=== PATIENT | female | born 1955 | race African-American/Black ===

== ENCOUNTER → 2019-02-26 | Outpatient (CLI) | payer OTHER ==
[~2019-02-26] VITALS: Ht 160 cm; Wt 110.7 kg
[~2019-02-26] MED LIST: CARVEDILOL12.5 MG PO; IBUPROFEN 200200 M1 PO; LOSARTAN-HCTZ1 EAC1 PO; MEDROLDOSEPACK PO; PRAVACHOL40 MG PO
--- NOTE | ~2019-02-26 | HPC ---
[facility] [address] [place] [address] PAIN MANAGEMENT CONSULTATION Name: RUBEN ZAFAR Room #: REG CHANDA StewartSantos#: [id number] Admission: 02/26/19 ������������������ Attend Phys: Bruno Sheikh MD Discharge: ������������������ Date of : 51 Report #: [id number] THIS REPORT FOR: //name// CC: Dr. Colt Hyatt [facility] physician/PCP Bruno Sheikh DATE OF SERVICE: 02/26/2019 CHIEF COMPLAINT: Pain in the low back that goes down into the lower leg. Pain is worse with walking and with lying down. I have tried medications, but it still is painful. She describes the discomfort as continuous, aching, intermittent, sharp, and throbbing. It has been going on for some time. She does noted some discomfort in 1998. Rates it as a 9/10 at this point. Denies any injury to cause this. Denies any significant change in bowel or bladder function. The patient states that she had an MRI, which showed some pressure on the nerve. The patient has had physical therapy, but the improvement was not long lasting. ALLERGIES: PENICILLIN, SHELLFISH, X-RAY DYE. PAST MEDICAL HISTORY: Hyperlipidemia, hypertension, morbid obesity, diverticulosis, and sciatica. PAST SURGICAL HISTORY: Carpal tunnel release 2013, appendectomy 2001, hysterectomy in 1979. Right heel surgery. SOCIAL HISTORY: She works as a customer success associate. She is working at this point. REVIEW OF SYSTEMS: Generally good health, cataracts, wears glasses, and palpitations. LABORATORY DATA: MRI of the lumbar spine dated 01/08/2019: 1. L1-L2 broad-based disk bulge and central disk protrusion with facet and ligamentum flavum hypertrophy results in mild central canal stenosis and thecal sac flattening. 2. L2-L3, circumferential disk bulge and asymmetrical left lateral protrusion in conjunction with facet arthrosis and ligamentum flavum hypertrophy cause mild central canal stenosis, the left greater than right neural foraminal narrowing. 3. L3-L4 disk bulge, facet and ligamentum flavum hypertrophy and left lateral protrusion causes [id number]-urhjtjdz central stenosis and bilateral foraminal stenosis, left greater than right. 4. L4-L5 disk bulge and central disk protrusion with facet and ligamentum flavum, greater on the right side with mild central canal stenosis as well as a right greater than left foraminal and lateral recess narrowing. [address] [address] PAIN MANAGEMENT CONSULTATION Name: RUBEN ZAFAR Room #: REG CLCasey Mcneil#: [id number] Admission: 02/26/19 ������������������ Attend Phys: Bruno Sheikh MD Discharge: ������������������ Date of : 51 Report #: [id number] 5. L5-S1. No disk protrusion. Central spinal or foraminal stenosis. 6. Impression, multilevel degenerative changes with disk bulge, facet arthropathy, and ligamentum flavum hypertrophy -- results in spinal stenosis and foraminal encroachment. PAIN CLINIC ASSESSMENT/PQRS: 1. The patient is not being treated for osteoarthritis or rheumatoid arthritis. 2. Height 62 inches, weight 245 pounds, BMI 44.9. 3. Blood pressure 130/84. 4. Pain intensity 9/10. 5. Fall history: The patient has not fallen in the last 3 months. 6. Blood thinner. The patient is not on a blood thinning medication. 7. The patient is at low risk for opioid use. 8. Alcohol: The patient denies frequent use of alcoholic beverages. 9. Drugs. The patient denies use of illegal drugs. PHYSICAL EXAMINATION: GENERAL: The patient is a well-developed, well-nourished, somewhat obese black female. Appears her stated age. She is alert and oriented x 3. Her affect is appropriate. Speech is fluent. HEENT: Normocephalic, atraumatic. Extraocular eye muscles intact. Sclerae nonicteric. Mucous membranes moist. NECK: Without adenopathy or JVD. EXTREMITIES: Upper extremity muscle strength is judged to be 5/5 for the major muscle groups in the upper extremity. CARDIAC: The patient's heart rate is regular. ABDOMEN: Protuberant. Bowel sounds present. EXTREMITIES: The patient without significant scoliosis, kyphosis, or lordosis. The patient does complain of pain and discomfort, which is radiating down into the low back area with positive straight leg raise on the left and sometimes right midline area at L5-S1. There is sensory changes. There is straight leg raise is positive on the left and right side. IMPRESSION: 1. Lumbar radiculopathy. 2. Hyperlipidemia. 3. Hypertension. 4. Morbid obesity. 5. Diverticulosis. 6. Sciatica. RECOMMENDATIONS: We discussed treatment options with the patient. At this juncture, she has continued to have pain and discomfort, which has been quite problematic. She has had episodes in the past. They have resolved. She is finding that the pain is more problematic. Rates it as 9/10. It is severely and impacting her activities of daily living. She has had an MRI. She has [address] [address] PAIN MANAGEMENT CONSULTATION Name: RUBEN ZAFAR Room #: REG CHANDA Mcneil#: [id number] Admission: 02/26/19 ������������������ Attend Phys: Bruno Sheikh MD Discharge: ������������������ Date of : 51 Report #: [id number] tried nonsteroidal anti-inflammatory medications, had physical therapy, and has continued to try stretching exercises. She will be provided a Medrol Dosepak to take at this juncture. After her insurance company provides her precertification she will return at which time we will consider an epidural steroid injection in the L5-S1 area to help quiet the pain and discomfort which she is experiencing. We would like to thank you for letting us participate in her care. We hope she continues to improve. ��������������������������������������������� ���������������������������������������� By: ��������������������������������������������� 1031 1241 Bruno Sheikh MD /GARRY
[2019-02-26 12:54] VITALS: BP 192/103
--- NOTE | 2019-02-26 13:23 | NUR ---
Pain Clinic Assessment: 1. History of Osteoarthritis: Not Applicable History of Rheumatoid Arthritis: Not Applicable 2. Height: 5 ft. 3 in. 160.0 cm. Weight: 244.0 lb. oz. 110.678 kg. Patient's BMI: 43.2 3. Vital Signs: BP: 192/103 Pulse: 70 Resp: 18 Temp: 02 Sat: 100 ECG Mon: 4. Pain Intensity: 9 5. Fall Risk: Dizziness: N Needs help standing or walking: N Fallen in the last 3 months: N Fall risk comments: 6. Patient on Blood Thinner: None 7. History of Hypertension: Y 8. Opioid Therapy greater than 6 weeks: N Opiate Contract Signed: 9. Risk Assessment Tool Provided: 10. Functional Assessment Tool: 11. Recreational Drug Use: Never Drug Type: Tobacco Use: Never Smoker Tobacco Type: Amount or Packs/day: How Many Years: Alcohol Use: No Frequency: Quant:
== END ==
LOC: PAIN 09:33
DX: M54.16 Radiculopathy, lumbar region (principal); M54.30 Sciatica, unspecified side; E78.5 Hyperlipidemia, unspecified; I10 Essential (primary) hypertension; E66.01 Morbid (severe) obesity due to excess calories; K57.30 Diverticulosis of large intestine without perforation or abscess without bleeding; Z68.41 Body mass index [BMI] 40.0-44.9, adult

== ENCOUNTER → 2019-03-04 | Outpatient (CLI) | payer OTHER ==
[~2019-03-04] VITALS: Ht 160 cm; Wt 111.4 kg
[2019-03-04 08:09] VITALS: BP 195/100
--- NOTE | 2019-03-04 08:29 | NUR ---
Pain Clinic Assessment: 1. History of Osteoarthritis: Not Applicable History of Rheumatoid Arthritis: Not Applicable 2. Height: 5 ft. 3 in. 160.0 cm. Weight: 245.6 lb. oz. 111.404 kg. Patient's BMI: 43.5 3. Vital Signs: BP: 195/100 Pulse: 64 Resp: 18 Temp: 02 Sat: 100 ECG Mon: 4. Pain Intensity: 7 5. Fall Risk: Dizziness: N Needs help standing or walking: N Fallen in the last 3 months: N Fall risk comments: 6. Patient on Blood Thinner: None 7. History of Hypertension: Y 8. Opioid Therapy greater than 6 weeks: N Opiate Contract Signed: 9. Risk Assessment Tool Provided: low-0 10. Functional Assessment Tool: 49/70 11. Recreational Drug Use: Never Drug Type: Tobacco Use: Never Smoker Tobacco Type: Amount or Packs/day: How Many Years: Alcohol Use: No Frequency: Quant:
--- NOTE | 2019-03-12 12:16 | HPC ---
[facility] [place] [address] [place] [address] PAIN MANAGEMENT CONSULTATION Name: TIM CERDARUBEN Room #: REG CHANDA Ewa#: [id number] Admission: 03/04/19 ������������������ Attend Phys: Erick Jiang DO Discharge: ������������������ Date of : 51 Report #: [id number] THIS REPORT FOR: //name// CC: [facility] physician/PCP Erick Ortez MD DATE OF SERVICE: 03/04/2019 REFERRING PHYSICIAN: Danelle Ortez M.D. CHIEF COMPLAINT: Low back pain and bilateral lower extremity pain with paresthesias. HISTORY OF PRESENT ILLNESS: As you know, the patient is a 63-year-old female referred to our service by her primary care physician for evaluation for lumbar radiculopathy. The patient saw my partner, Dr. Brodie Sheikh on a visit of 02/26/2019, diagnosed with lumbar radiculopathy secondary to displacement of lumbar intervertebral disk and facet arthropathy of the lumbar spine. The patient was established today's appointment to undergo a lumbar epidural injection under fluoroscopic guidance as she needed a preauthorization before she could undergo the procedure. She returns today in followup visit reporting a pain level of 7/10. She has had no changes in medical history since the visit of 02/26/2019. ALLERGIES: IV CONTRAST AGENT and PENICILLIN. CURRENT MEDICATIONS: Losartan/hydrochlorothiazide, pravastatin, carvedilol and ibuprofen. SOCIAL HISTORY: The patient continues to report. She is a nonsmoker. Denies IV or illicit drug use. Denies any chronic alcohol use. She is a customer servicer, working, not receiving workmen's compensation, unaccompanied today. IMAGING DATA: No new imaging available. PHYSICAL EXAMINATION: VITAL SIGNS: Blood pressure 195/100, pulse 64 and respiratory rate 18 and unlabored. The patient on 100% on room air. Height 5 feet 3 inches tall, weight 245.6 pounds and BMI calculated 36.5. GENERAL: Well-developed, well-nourished, well-hydrated, class 3 morbidly obese 63-year-old female appearing stated age, pain is rated at 7/10. HEENT: Normocephalic and atraumatic. Pupils equal, round and reactive to light. EXTREMITIES: Show no clubbing, no cyanosis and no edema. [facility] [address] [place] [address] PAIN MANAGEMENT CONSULTATION Name: TIM RUBEN CERDA Room #: REG [facility] Pat.#: [id number] Admission: 03/04/19 ������������������ Attend Phys: Erick Jiang DO Discharge: ������������������ Date of : 51 Report #: [id number] MUSCULOSKELETAL: Lower extremity strength appears symmetrical 5/5. Muscle bulk and tone is symmetrical when comparing left lower extremity over right. Seated straight leg raising negative. Supine straight leg raising mildly positive. Gait is mildly antalgic, appearing to favor right lower extremity over left. The patient has difficulty in pain elicited with standing from a seated position. ASSESSMENT: 1. Symptomatic lumbar radiculopathy. 2. Displacement of the lumbar intervertebral disk with radiculopathy. 3. Lumbosacral spondylosis with radiculopathy. 4. Facet arthropathy of the lumbar spine. 5. Chronic intractable pain. PLAN: 1. The patient has returned today in followup visit to undergo the first in a series of lumbar epidural injections under fluoroscopic guidance. The patient has received preauthorization to undergo the epidural injection per her third green party payer. She was made today's appointment as soon as the patient could be seen to undergo the procedure. The patient and I discussed at length the risks and benefits of an epidural injection and the following was discussed with the patient today. We discussed risks that include but are not necessarily limited to bleeding, bruising, infection, worsening pain, no relief of pain, also risk of temporary or permanent muscle weakness, temporary or permanent nerve damage, possible paralysis, post-dural puncture headache and . The patient states understood and wished to proceed. 2. No medication changes made at today's visit. The patient will continue current medical therapy as previously prescribed. 3. We will see the patient back in followup visit in 30 days. At that time, review efficacy of today's epidural injection to determine if Dr. Sheikh wishes to move forward with the next in the series of lumbar epidural injections based on response to today's procedure. PROCEDURE NOTE DESCRIPTION OF PROCEDURE: L5-S1 interlaminar epidural steroid injection under fluoroscopic guidance. This is the first procedure of the first series that the patient is undergoing. After obtaining written consent, the patient was taken back to the fluoroscopy suite, placed in a prone position with pillow under the abdomen to decrease lumbar lordosis. The skin overlying the lumbosacral area was then prepped and draped in aseptic fashion. The L5-S1 vertebral interspace was then identified [address] [address] PAIN MANAGEMENT CONSULTATION Name: RUBEN ZAFAR Room #: MANDI Mcneil#: [id number] Admission: 03/04/19 ������������������ Attend Phys: Erick Jiang DO Discharge: ������������������ Date of : 51 Report #: [id number] by AP fluoroscopy. The skin and subcutaneous tissue overlying the target site of injection was anesthetized with 3 mL 1% lidocaine. A 20-gauge 4-1/2 inch Tuohy needle was then advanced under fluoroscopic guidance towards the epidural space using a midline approach. The epidural space was identified using loss of resistance to air technique. After negative aspiration for heme or cerebrospinal fluid, a total of 1 mL of Omnipaque was injected. A lumbar epidurogram was confirmed using both AP and lateral fluoroscopy. After negative aspiration for heme or cerebrospinal fluid, 5 mL of a solution containing 2 mL 40 mg per mL, 80 mg total triamcinolone, 3 mL lidocaine 1% was injected in increments. Contrast spread was noted posterior epidural space. The needle was then retracted approximately half way and needle tract flushed with 1 mL of 1% lidocaine. Needle was then removed. There were no apparent sensory or motor deficits in the lower extremity following the procedure. A sterile bandage was placed over the injection site. The heart rate, pulse, oximetry and blood pressure were continuously monitored after the procedure. There were no apparent complications. The patient tolerated the procedure well and was carefully escorted to the recovery room in stable condition. There were no apparent complications. After meeting discharge criteria, the patient was then discharged home. ��������������������������������������������� <ELECTRONICALLY SIGNED> ���������������������������������������� By: Erick Jiang DO ��������������������������������������������� 03/12/19 1216 0707 0828 Erick Jiang DO /nt
== END | disposition home or self-care (01) ==
LOC: PAIN 02-28 06:55
DX: M51.16 Intervertebral disc disorders with radiculopathy, lumbar region (principal); M47.27 Other spondylosis with radiculopathy, lumbosacral region; M46.96 Unspecified inflammatory spondylopathy, lumbar region; G89.29 Other chronic pain; Z79.899 Other long term (current) drug therapy; Z88.0 Allergy status to penicillin; Z91.041 Radiographic dye allergy status

== ENCOUNTER 2020-05-08 09:29 | Emergency (ER) | payer OTHER ==
[~2020-05-08] VITALS: Ht 160 cm; Wt 113.4 kg
[2020-05-08] MEDS ORDERED: MELOXICAM15 MG PO (09:54)
[2020-05-08] MEDS ORDERED: NEURONTIN 300M300 M2 PO (09:54)
[2020-05-08] MEDS ORDERED: COZAAR 50 MG TA50 MG PO (09:55)
[2020-05-08] MEDS ORDERED: NORFLEX100 MG PO (10:25)
[2020-05-08] MEDS ORDERED: NAPROXEN375 MG PO (10:25)
[2020-05-08 10:36] VITALS: BP 153/78
== END 2020-05-08 10:38 | disposition home or self-care (01) ==
LOC: ER 09:29
DX: M43.6 Torticollis (principal); R20.2 Paresthesia of skin; I10 Essential (primary) hypertension; Z90.49 Acquired absence of other specified parts of digestive tract; Z79.899 Other long term (current) drug therapy; Z88.0 Allergy status to penicillin; Z91.048 Other nonmedicinal substance allergy status

== ENCOUNTER 2021-08-06 08:02 | Emergency (ER) | payer OTHER ==
[~2021-08-06] VITALS: Ht 160 cm; Wt 112.5 kg
[~2021-08-06 08:02] MED LIST changes: +COZAAR 50 MG TA50 MG PO; +MELOXICAM15 MG PO; +NAPROXEN375 MG PO; +NEURONTIN 300M300 M2 PO; +NORFLEX100 MG PO
[2021-08-06] MEDS ORDERED: LOSARTAN-HCTZ1 EAC3 PO (08:31)
[2021-08-06 08:36] LABS: ABSOLUTE NEUTROPHILS 6.8 thou/uL (1.4-8.2); BASOPHILS 0.6 % (0.0-2.0); EOSINOPHILS 1.8 % (0.0-3.0); HEMATOCRIT 39.5 % (37.0-47.0); HEMOGLOBIN 12.8 gm/dL (12.0-15.0); LYMPHOCYTES 25.1 % (24.0-44.0); MCHC 32.3 g/dL (28.0-37.0); MCV 92.8 fL (80.0-100.0); PLATELET COUNT 200 thou/uL (150-400); POLYS 65.5 % (36.0-66.0); RBC 4.25 mil/uL (4.20-5.00); RDW 13.5 % (10.5-14.5); WBC 10.4 thou/uL (4.0-11.0)
[2021-08-06 08:52] LABS: ANION GAP < 0 mmol/L (7-16); BUN 14 mg/dL (7-18); CHLORIDE 104 mmol/L (98-107); CO2 27 mmol/L (21-32); CREATININE 0.6 mg/dL (0.6-1.0); GLUCOSE 96 mg/dL (74-106); POTASSIUM 3.5 mmol/L (3.5-5.1); SODIUM 126 mmol/L (136-145)
[2021-08-06 09:02] LABS: ALBUMIN 3.2 g/dL (3.4-5.0); SGOT 19 U/L (15-37); SGPT 31 U/L (14-59); TOTAL BILIRUBIN 0.6 mg/dL (0.2-1.0); TOTAL PROTEIN 6.8 g/dL (6.4-8.2)
--- NOTE | 2021-08-06 09:29 | EKG ---
[address] [address] ELECTROCARDIOGRAM REPORT Name: RUBEN ZAFAR Room #: REG [facility] [id number] Admission: 08/06/21 Attend Phys: Discharge: Date of : 51 Report #: [id number] [facility] ED Test Date: 2021-08-06 Test Time: 08:09:54 Pat Name: RUBEN CERDA Department: Room: Gender: F Door To Door Salesperson: ilene : 1955 Requested By: Leno Abbott Order Number: [id number] MD: Scotty Osorio Measurements Intervals [place] Rate: 68 P: 42 [place]: 157 QRS: 1 QRSD: 90 T: 31 QT: 389 QTc: 414 Interpretive Statements Sinus rhythm No previous ECG available for comparison Electronically Signed On 08-06-2021 9:29:08 CLINICAL LIAISON by Scotty Osorio [email or web address] <ELECTRONICALLY SIGNED> By: Scotty Osorio MD, [facility] 08/06/21928 8 8 Scotty Osorio MD, FACC /EPI
[2021-08-06] MEDS ORDERED: FLEXERIL PO (11:22)
[2021-08-06] MEDS ORDERED: IBUPROFEN 800800 MG PO (11:22)
[2021-08-06 11:49] VITALS: BP 136/73
== END 2021-08-06 11:52 | disposition home or self-care (01) ==
LOC: ER 08:02
PROVIDERS: Emergency Medicine
DX: R42 Dizziness and giddiness (principal); R00.2 Palpitations; M54.6 Pain in thoracic spine; I10 Essential (primary) hypertension; Z98.890 Other specified postprocedural states; Z90.49 Acquired absence of other specified parts of digestive tract; Z79.899 Other long term (current) drug therapy; Z79.1 Long term (current) use of non-steroidal anti-inflammatories (NSAID); Z79.891 Long term (current) use of opiate analgesic; Z88.0 Allergy status to penicillin; Z91.041 Radiographic dye allergy status

== ENCOUNTER 2021-09-02 20:26 | Inpatient (IN) | payer OTHER ==
[~2021-09-02] VITALS: Ht 160 cm; Wt 112.9 kg
[~2021-09-02 20:26] MED LIST changes: +FLEXERIL PO; +IBUPROFEN 800800 MG PO; +LOSARTAN-HCTZ1 EAC3 PO
[2021-09-02 20:35] VITALS: BP 190/88
[2021-09-02 23:59] LABS: HEMATOCRIT 35.9 % (37.0-47.0); HEMOGLOBIN 11.4 gm/dL (12.0-15.0); MCH 29.9 pg (26.0-34.0); MCHC 31.9 g/dL (28.0-37.0); MCV 93.9 fL (80.0-100.0); RBC 3.83 mil/uL (4.20-5.00); RDW 13.6 % (10.5-14.5); WBC 13.6 thou/uL (4.0-11.0)
[2021-09-03 00:09] LABS: CALCIUM 8.9 mg/dL (8.5-10.1); CREATININE 0.9 mg/dL (0.6-1.0); POTASSIUM 3.9 mmol/L (3.5-5.1)
[2021-09-03 00:14] LABS: ALBUMIN 3.1 g/dL (3.4-5.0); TOTAL BILIRUBIN 0.3 mg/dL (0.2-1.0); TOTAL PROTEIN 6.6 g/dL (6.4-8.2)
[2021-09-03 01:12] LABS: APTT 25.4 Seconds (24.5-32.8); INR 0.98; PROTIME 10.7 Seconds (10.5-12.1)
[2021-09-03 09:22] LABS: HEMATOCRIT 27.8 % (37.0-47.0)
[2021-09-03 09:26] LABS: HEMOGLOBIN 9.1 gm/dL (12.0-15.0)
--- NOTE | 2021-09-03 12:11 | EKG ---
[place] [address] [facility] [employer] [place] [address] ELECTROCARDIOGRAM REPORT Name: TIMRUBEN WATT Room #: 170-3 ADM IN M.R.#: [id number] Admission: 09/03/21 Attend Phys: Pola Singletary Discharge: Date of : 51 Report #: [id number] [facility] ED Test Date: 2021-09-03 Test Time: 12:02:08 Pat Name: RUBEN CERDA Department: Room: 170 Gender: F Wire Machine Operator: ROSETTA : 1955 Requested By: Stephan Phelps Order Number: [id number] MD: Guy Cash Measurements Intervals [place] Rate: 81 P: 32 [place]: 172 QRS: 21 QRSD: 79 T: 97 QT: 530 QTc: 616 Interpretive Statements Sinus rhythm Nonspecific T wave abnormality Prolonged QT interval Compared to ECG 08/06/2021 08:09:54 T-wave abnormality now present Electronically Signed On 09-03-2021 12:11:29 FINANCIAL SALES ASSISTANT by Guy Cash [email or web address] <ELECTRONICALLY SIGNED> By: Guy Cash MD, [facility] 09/03/21 1211 1202 120 Guy Cash MD, [facility] /EPI
[2021-09-03 20:03] VITALS: BP 210/97
[2021-09-03 20:42] VITALS: BP 174/68
[2021-09-03 21:37] LABS: HEMATOCRIT 27.8 % (37.0-47.0); HEMOGLOBIN 9.1 gm/dL (12.0-15.0)
[2021-09-03 23:02] VITALS: BP 174/68
[2021-09-03 23:47] VITALS: BP 173/74
[2021-09-04] VITALS (7 sets, daily range): BP systolic 111–189; BP diastolic 65–90
[2021-09-04 03:14] LABS: HEMATOCRIT 27.2 % (37.0-47.0); HEMOGLOBIN 9.1 gm/dL (12.0-15.0); MCH 31.3 pg (26.0-34.0); MCHC 33.3 g/dL (28.0-37.0); RBC 2.89 mil/uL (4.20-5.00); RDW 13.5 % (10.5-14.5); WBC 10.8 thou/uL (4.0-11.0)
[2021-09-04 03:20] LABS: CALCIUM 8.3 mg/dL (8.5-10.1); CREATININE 0.6 mg/dL (0.6-1.0); MAGNESIUM 1.5 mg/dL (1.8-2.4); POTASSIUM 3.3 mmol/L (3.5-5.1)
--- NOTE | 2021-09-04 06:08 | NUR ---
PT ADMITTED TO ROOM 213 FROM ER WITH C/O BLOODY STOOLS, NO INSIDENTS TODAY PLANNING COLONOSCOPY ON SUNDAY, TOLERATONG CLEAR LIQ DIET, NO C/O PAIN OR N/V, UP ADLIB TO BR TO VOID, VSS, IV FLUIDS INFUSING IN L ARM, RESTING QUIETLY IN ROOM, WILL CON'T TO MONITOR PER PPOC.
--- NOTE | 2021-09-04 17:44 | NUR ---
PATIENT ASSESMENTS CHARTED. PATIENT BEGAN HER BOWEL PREP. NO COMPLAINTS AT THIS TIME.
[2021-09-05] VITALS: BP 149/58
--- NOTE | 2021-09-05 00:39 | NUR ---
PT STARTED BOWEL PREP AT 1800 AND FINISHED AT 2130, BECAME N/V AND LIGHT HEADED SBP DROPPED FROM 189 TO 111 HELPED PT CLEAN UP CHANGE GOWN AND HELPED BACK TO BED IV METOPROLOL HELD AND RECHECKED BP AT [facility] AT 149/58, PT STATED SHE WAS FEELING BETTER BUT STILL FELT WEAK, REMINDED PT TO CALL FOR ASST TO BR, NPO FOR COLONOSCOPY LATER TODAY, WILL CON'T TO MONITOR.
[2021-09-05 04:07] LABS: CALCIUM 8.8 mg/dL (8.5-10.1); CREATININE 0.5 mg/dL (0.6-1.0); MAGNESIUM 1.9 mg/dL (1.8-2.4); POTASSIUM 3.4 mmol/L (3.5-5.1)
[2021-09-05 05:14] VITALS: BP 154/76
[2021-09-05 07:40] VITALS: BP 145/80
[2021-09-05 08:06] LABS: HEMATOCRIT 28.7 % (37.0-47.0); HEMOGLOBIN 9.3 gm/dL (12.0-15.0); MCH 30.5 pg (26.0-34.0); MCHC 32.4 g/dL (28.0-37.0); MCV 94.3 fL (80.0-100.0); RBC 3.05 mil/uL (4.20-5.00); RDW 13.6 % (10.5-14.5); WBC 14.9 thou/uL (4.0-11.0)
[2021-09-05 11:00] VITALS: BP 156/70
[2021-09-05 15:00] VITALS: BP 143/72
[2021-09-05 17:58] VITALS: BP 143/72
--- NOTE | 2021-09-07 16:06 | PATH ---
[facility] [address] [place] [address] PATHOLOGY RPT PROCEDURE Name: TIM CERDACHARLOTTE Room #: 213-P DIS IN M.R.#: [id number] Admission: 09/03/21 Date of : 51 Discharge: 09/05/21 Report #: [id number] Path Case #: [id number] [facility] Accession Number: [id number] . 01 Material submitted: . colon - DESCENDING COLON POLYPS. Modifiers: descending . 01 Clinical history: . HEMATOCHEZIA DIVERTICULOSIS . 02 Diagnosis: Descending colon polyp, polypectomy: - Tubular adenoma. - Negative for high-grade dysplasia or malignancy. (ANK:pit; 09/07/2021) QTP 09/07/2021 1430 Local . 02 Electronically signed: . Lori Cardona MD, Pathologist NPI- [id number] . 01 Gross description: . The specimen is received in formalin, labeled "Tim Cerda, [place], descending colon polyp" and consists of a smith sessile tissue measuring 1.0 x 0.3 x 0.2 cm which is submitted in toto in A1.(DIOMEDE; 09/06/2021) DKA/DKA 09/06/2021 1315 Local . 02 Pathologist provided ICD-10: D12.4 . 02 CPT . 180040 Specimen Comment: A courtesy copy of this report has been sent to [phone], [phone] Specimen Comment: [phone] Specimen Comment: Report sent to / DR KUMAR Performed at: [address] [facility], [place] [id number] MD Constantino Ayala MD Phone: [phone] Performed at: [address] [id number] [address] DR Phone: [phone]
== END 2021-09-05 18:22 | disposition home or self-care (01) | DRG 377 ==
LOC: ER 20:26 → 2N 09-03 02:22 → EROBS 09-03 02:22 → 2N 09-03 20:00
PROVIDERS: Emergency Medicine; Internal Medicine; ADMIT Hospitalist; ATTEND Hospitalist
PROC: 0DBM8ZZ Excision of Descending Colon, Via Natural or Artificial Opening Endoscopic (ICD-10-PCS; principal; 2021-09-05)
DX: K57.31 Diverticulosis of large intestine without perforation or abscess with bleeding (principal); R65.11 Systemic inflammatory response syndrome (SIRS) of non-infectious origin with acute organ dysfunction; D64.9 Anemia, unspecified; I10 Essential (primary) hypertension; E78.5 Hyperlipidemia, unspecified; Z20.822 Contact with and (suspected) exposure to COVID-19; G89.29 Other chronic pain; Z90.49 Acquired absence of other specified parts of digestive tract; Z88.0 Allergy status to penicillin; Z91.041 Radiographic dye allergy status; Z90.711 Acquired absence of uterus with remaining cervical stump; Z80.0 Family history of malignant neoplasm of digestive organs
CPT/HCPCS: 10081; 10194; 62110; 62900; 70005